=== PATIENT | female | born 1965 | race African-American/Black ===

== ENCOUNTER 2020-04-07 23:27 | Emergency (ER) | payer MEDICAID, OTHER ==
[~2020-04-07] VITALS: Ht 162.6 cm; Wt 69.0 kg
[2020-04-08 00:11] VITALS: BP 122/82
[2020-04-08] MEDS ORDERED: ACETAMINOPHEN WITH CODEINE 300/30MG TABLET PO ONE (00:15)
== END 2020-04-08 04:38 | disposition home or self-care (01) ==
LOC: ER 23:27
DX: S92.491A Other fracture of right great toe, initial encounter for closed fracture (principal); V49.49XA Driver injured in collision with other motor vehicles in traffic accident, initial encounter; Y93.89 Activity, other specified; Y92.89 Other specified places as the place of occurrence of the external cause; Y99.8 Other external cause status
CPT/HCPCS: 73590; 73610; 73630; 99284; Z7610